=== PATIENT | male | born 1970 | race African-American/Black ===

== ENCOUNTER 2018-10-18 04:21 | Emergency (ER) | payer OTHER ==
[2018-10-18] MEDS: predniSONE 20 MG TAB PO (07:13)
[2018-10-18] MEDS: IBUPROFEN 800 MG TAB PO (07:13)
[2018-10-18] MEDS: ALBUTEROL 0.5% (NEB) 2.5 MG/0.5 ML AMP INH (07:37)
== END 2018-10-18 10:41 | disposition home or self-care (01) ==
LOC: E/R 10:41
DX: J40 Bronchitis, not specified as acute or chronic (principal)
CPT/HCPCS: 71045; 87400; 94644; 99284-25